=== PATIENT | female | born 1990 | race Caucasian/White ===

== ENCOUNTER 2021-07-31 10:27 | Emergency (ER) | payer SELFPAY ==
--- NOTE | 2021-07-31 13:17 | Emergency Department Report ---
ED Anxiety HPI - General Chief Complaint: Chest Pain Stated Complaint: ANTERIOR WALL CHEST PAIN Time Seen by Provider: 07/31/21 12:59 Source: EMS Mode of arrival: Stretcher - History of Present Illness Initial Comments: 30-year-old female requesting a medication refill for her albuterol inhaler. She states she that she had an anxiety attack this a.m.. She denies any chest pain shortness of breath or abdominal pain at present time. Patient states that she had an anxiety attack has since resolved. Patient is alert and oriented x3. No acute distress noted no ill appearance noted. No ill appearance noted. MD Complaint: anxiety -: This morning Place: home Previous History of Same: Yes Improves With: deep breaths Worsens With: nothing - Related Data Home Medications: Previous Rx's Medication Instructions Recorded Last Taken Type Albuterol Mdi (or & Nicu Only) 2 puff IH QID PRN 5 Days #8.5 gram 07/31/21 Unknown Rx [ProAir HFA Inhaler] Allergies/Adverse Reactions: Allergies Allergy/AdvReac Type Severity Reaction Status Date / Time acetaminophen [From Tylenol] Allergy Headache Verified 07/31/21 10:39 fentanyl Allergy Unknown Verified 07/31/21 10:39 sulfamethoxazole Allergy Hives Verified 07/31/21 10:39 [From Bactrim] trimethoprim [From Bactrim] Allergy Hives Verified 07/31/21 10:39 ED Review of Systems ROS: Stated complaint: ANTERIOR WALL CHEST PAIN Other details as noted in HPI Constitutional: denies: chills, fever Eyes: denies: eye pain, eye discharge, vision change ENT: denies: ear pain, throat pain Respiratory: denies: cough, shortness of breath, wheezing Cardiovascular: denies: chest pain, palpitations Endocrine: no symptoms reported Gastrointestinal: denies: abdominal pain, nausea, diarrhea Genitourinary: denies: urgency, dysuria, discharge Musculoskeletal: denies: back pain, joint swelling, arthralgia Skin: denies: rash, lesions Neurological: denies: headache, weakness, paresthesias Psychiatric: denies: anxiety, depression Hematological/Lymphatic: denies: easy bleeding, easy bruising ED Past Medical Hx - Past Medical History Previous Medical History?: Yes Hx Psychiatric Treatment: Yes (ANXIETY) Hx Asthma: Yes - Surgical History Past Surgical History?: No - Medications Home Medications: Home Medications Medication Instructions Recorded Confirmed Last Taken Type Albuterol Mdi (or & Nicu Only) 2 puff IH QID PRN 5 Days #8.5 gram 07/31/21 Unknown Rx [ProAir HFA Inhaler] ED Physical Exam - General Limitations: No Limitations General appearance: alert, in no apparent distress - Head Head exam: Present: atraumatic, normocephalic - Eye Eye exam: Present: normal appearance - ENT ENT exam: Present: mucous membranes moist - Neck Neck exam: Present: normal inspection - Respiratory Respiratory exam: Present: normal lung sounds bilaterally. Absent: respiratory distress - Cardiovascular Cardiovascular Exam: Present: regular rate, normal rhythm. Absent: systolic murmur, diastolic murmur, rubs, gallop - GI/Abdominal GI/Abdominal exam: Present: soft, normal bowel sounds - Extremities Exam Extremities exam: Present: normal inspection - Back Exam Back exam: Present: normal inspection - Neurological Exam Neurological exam: Present: alert, oriented X3 - Psychiatric Psychiatric exam: Present: normal affect, normal mood - Skin Skin exam: Present: warm, dry, intact, normal color. Absent: rash ED Course Vital Signs 07/31/21 10:34 Temperature 98.6 F Pulse Rate 83 Respiratory 16 Rate Blood Pressure 142/88 [Left] O2 Sat by Pulse 99 Oximetry ED Medical Decision Making - EKG Data Sinus rhythm at 66 07/31/21 13:46 - Medical Decision Making 30-year-old female requesting a medication refill for her albuterol inhaler. She states she that she had an anxiety attack this a.m.. She denies any chest pain shortness of breath or abdominal pain at present time. Patient states that she had an anxiety attack has since resolved. Patient is alert and oriented x3. No acute distress noted no ill appearance noted. No ill appearance noted. Physical examination is unremarkable. Patient had EKG sinus rhythm [address] elevation. Patient did not wish to have any lab work or any other diagnostic testing performed at present time. Rechecked the patient is resting quietly quietly and comfortable and feeling better. I discussed the results of diagnostic study, my clinical impression and the plan for further treatment with the patient. Patient agrees with plan and discharge at this present time. All question addressed. I have given the patient instruction regarding a diagnosis ,expectation ,follow- up and return precaution. I explained to the patient that emergent condition may arise and to return to the ED for new worsen and any new persisting condition. I have explained the importance of following up with the primary care physician or referral physician listed below has instructed. The patient verbalized understanding of discharge instruction. Critical care attestation.: If time is entered above; I have spent that time in minutes in the direct care of this critically ill patient, excluding procedure time. ED Disposition Clinical Impression: Anxiety, Medication refill Disposition: HOME / SELF CARE / HOMELESS Is pt being admited?: No Does the pt Need Aspirin: No Condition: Stable Instructions: Managing Anxiety, Adult Additional Instructions: Return to ED for any worsening symptom Prescriptions: Albuterol Mdi (or & Nicu Only) [ProAir HFA Inhaler] 2 puff IH QID PRN 5 Days #8.5 gram PRN Reason: Shortness Of Breath Referrals: [facility] [Provider Group] - 3-5 Days Forms: Work/School Release Form(ED) Time of Disposition: 13:17
[2021-07-31 13:43] VITALS: BP 125/72
== END 2021-07-31 13:42 | disposition home or self-care (01) ==
LOC: ED 10:27
DX: F41.9 Anxiety disorder, unspecified (principal); Z76.0 Encounter for issue of repeat prescription; J45.909 Unspecified asthma, uncomplicated; Z88.6 Allergy status to analgesic agent; Z88.1 Allergy status to other antibiotic agents; Z91.09 Other allergy status, other than to drugs and biological substances; Z79.899 Other long term (current) drug therapy
CPT/HCPCS: 93005; 99283